=== PATIENT | female | born 1955 | race Caucasian/White ===

== ENCOUNTER 2022-05-30 14:39 | Outpatient (CLI) | payer MEDICARE, BC, SELFPAY ==
--- NOTE | 2022-05-30 14:30 | MR_ITS ---
[address] [address] Phone:?[phone] Fax:?[phone] Referring Physician Information: Lee Llanos M.D. [id number] [facility] [address] Phone:?[phone] Fax:?[phone] Patient:Lea Ashford D.O.B:?1955 Sex:?Female Phone:?[phone] [facility] MRN:?[id number] Exam Date:?05/30/2022 ? EXAM: MRI OF THE RIGHT SHOULDER CLINICAL INFORMATION: The patient is a 66-year-old with right shoulder pain. Evaluate for biceps injury. PRIOR SURGERY: None reported. COMPARISON STUDIES: There are no prior studies available for comparison. TECHNICAL INFORMATION: Using a 1.5T MR scanner and a localizing shoulder surface coil: 3.0 mm?coronal obliques: PD, T2, STIR 3.0 mm?sagittal obliques: PD, T2 3.0 mm?axials: PD, T2 FINDINGS: Articular/Extraarticular collections: Effusion: Moderate. Subacromial/subdeltoid: Mild to moderate fluid is seen within the subacromial/subdeltoid bursa, in keeping with changes of bursitis. Subcoracoid: No evidence for bursitis. Osseous structures: Proximal humerus: There is cortical irregularity and subcortical edema involving the greater and lesser tuberosity regions, in keeping with the rotator cuff pathology discussed below. No evidence for greater or lesser tuberosity fracture can be seen. No Hill-Sachs or reverse Hill-Sachs lesion is identified. Glenoid: No acute bony abnormality of the glenoid fossa or glenoid neck can be seen. Acromioclavicular joint: Moderate changes of acromioclavicular joint arthrosis are present and can be seen on coronal series 4 image 13 and on sagittal series 8 image 16. Coracoacromial arch: Acromion morphology: Type II. No evidence for os acromiale. Acromiohumeral space: Mildly narrowed. Coracohumeral space: Mildly narrowed. Rotator cuff and deltoid: Supraspinatus: The supraspinatus tendon is abnormal in appearance. There is high-grade partial-thickness intrasubstance and deep surface tearing of the supraspinatus tendon fibers seen on coronal series 6 image 15 and on sagittal series 8 image 11, measuring approximately 18 mm in mediolateral dimension and involving up to 90% of the tendon thickness. Additional superimposed focal areas of full-thickness fenestration of the anterior and distal tendon fibers can be seen on coronal series 6 image 12 and on sagittal series 8 image 7, each measuring approximately 5 mm in greatest dimension. No definite evidence for well-defined retraction is seen. Mild atrophic changes of the supraspinatus muscle belly are present. Infraspinatus: Mild to moderate infraspinatus tendinosis can be seen. There is no evidence for full or partial-thickness tearing. No atrophic changes of the infraspinatus muscle belly are identified. Teres minor: No evidence for tendinosis, tearing, or associated muscle belly atrophy. Subscapularis: Mild to moderate subscapularis tendinosis can be seen. There is no evidence for full or partial-thickness tearing. No atrophic changes of the subscapularis muscle belly are noted. Deltoid: No evidence for strain or tearing. Biceps tendon: Tendinosis and splitting of the long head of the biceps can be seen with mild medial subluxation of the tendon at the level of the biceps sulcus. There is no evidence for biceps rupture or nicol dislocation. Glenohumeral joint and labrum: Articular Cartilage: Chondromalacia and chondral thinning along the articular surfaces of the glenohumeral articulation can be seen. No definite osteoarthritic changes are present. Labrum: Degeneration, blunting, and irregularity of the glenoid labrum can be seen without definite areas of more well-defined tearing. No paralabral ganglion cyst formation is present. Capsular Soft Tissues: Thickening of the capsular structures of the glenohumeral articulation can be seen in the region of the axillary recess and rotator cuff interval. The findings are consistent with changes of adhesive capsulitis. CONCLUSION: 1. High-grade partial-thickness supraspinatus tearing with focal areas of superimposed full-thickness disruption of the anterior and distal tendon fibers. Please see the description above. 2. Mild to moderate infraspinatus and subscapularis tendinosis. 3. Tendinosis, splitting, and mild medial subluxation of the long head of the biceps. 4. Chondromalacia and chondral thinning along the articular surfaces of the glenohumeral articulation. 5. Moderate acromioclavicular joint arthrosis with mild narrowing of the acromiohumeral space. 6. Moderate glenohumeral joint effusion with mild to moderate subacromial/subdeltoid bursal fluid. 7. Nonspecific capsular thickening, in keeping with adhesive capsulitis. [facility] Electronically signed on 05/31/2022 8:16:00 AM by Iban Sue M.D.
== END 2022-05-30 14:40 | disposition home or self-care (01) ==
LOC: MRI 14:42
PROVIDERS: PCP Family Medicine; Visit Provider Orthopaedic Surgery Sports Medicine
DX: M25.511 Pain in right shoulder (principal); S46.211A Strain of muscle, fascia and tendon of other parts of biceps, right arm, initial encounter; M75.101 Unspecified rotator cuff tear or rupture of right shoulder, not specified as traumatic; M94.211 Chondromalacia, right shoulder; M25.411 Effusion, right shoulder; M75.01 Adhesive capsulitis of right shoulder
CPT/HCPCS: 73221

== ENCOUNTER 2023-01-11 07:11 | Day surgery (SDC) | payer MEDICARE, BC, SELFPAY ==
[2023-01-11] VITALS (15 sets, daily range): BP systolic 105–147; BP diastolic 48–81; PULSE 47–90; RESP 16–21; TEMP 36.1–36.6; O2SAT 90–98; BMI 38.1
[2023-01-11] MEDS: LACTATED RINGERS 1000 ML 1,000 ML 100 ML IV ×2 (08:00→10:40)
[2023-01-11] MEDS: SODIUM CHLORIDE 0.9 % (FLUSH) 10 ML SYRINGE IVF (08:07)
[2023-01-11] MEDS: MIDAZOLAM HCL 1 MG/ML inj IVP (09:00)
[2023-01-11] MEDS: fentaNYL 100 MCG/2 ML inj IVP (09:00)
--- NOTE | 2023-01-11 09:07 | SUR.PREOP ---
TIME?OUT:?0855, right shoulder PT/RN/MDA?VERIFICATION?OF?SURGICAL?SITE,?PROCEDURE,?AND?CONSENT OBTAINED?PRIOR?TO?INVASIVE?PROCEDURE.
--- NOTE | 2023-01-11 09:39 | P.NB_ITS ---
Nerve Block Nerve Block Time Seen by Provider: 09:02 Date Seen: 01/11/23 Type of block requested by surgeon for post-operative analgesia: supraclavicular Side: right Time out performed: Yes Verification of patient name: Yes Verification of date of : Yes Site marking: site marked Name of person performing procedure: Richard Continuous monitoring Was continuous monitoring of O2 sat, B/P, clinical research monitor, recorded every 15 minutes?: Yes Procedure Checklist: sterile prep, needles and gloves Ultrasound guided. Images saved: Yes Medications given in 5ml increments after negative aspiration: Ropivicaine %: 0.5 mL: 20 Needle gauge: 22 Decadron (mg): 10 Precedex (mcg): 25 Patient tolerated procedure well: Yes Block Charges Block Charge (with Pro Fee): Brachial Plexus Use of Ultrasound Machine for Block: Yes- US Guidance/pain block
--- NOTE | 2023-01-11 09:39 | W.ANESCHARGE ---
Anesthesia Charges Start Date/Time Anesthesia Start Date: 01/11/23 Anesthesia Start Time: 09:39 Stop Date/Time Anesthesia Stop Date: 01/11/23 Anesthesia Stop Time: 11:34
[2023-01-11] MEDS: CEFAZOLIN 2 GM in 0.9 % SODIUM CHLORIDE Mini-bag 100 ML IVPB (09:47)
[2023-01-11] MEDS: EPINEPHrine 1 MG in SODIUM CHLORIDE IRRIG SOLUTION 3,000 ML 9003 MG IRRIGATION ×3 (10:20→11:01)
--- NOTE | 2023-01-11 11:32 | P.ORPRC_ITS ---
Procedure Note Date of procedure: 01/11/23 Procedure: PREOPERATIVE DIAGNOSES: 1. Right shoulder rotator cuff tear -full thickness supraspinatus and significant upper border subscapularis with mild-moderate retraction 2. Right shoulder AC joint arthrosis, primary, moderate-severe 3. Right shoulder anterior and superior labral tearing 4. Right shoulder low-grade partial-thickness long head of biceps tendon tearing 5. 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 Right shoulder subacromial impingement syndrome. POSTOPERATIVE DIAGNOSES: 1. Right shoulder rotator cuff tear -full thickness supraspinatus and significant upper border subscapularis with mild-moderate retraction 2. Right shoulder AC joint arthrosis, primary, moderate-severe 3. Right shoulder anterior and superior labral tearing 4. Right shoulder low-grade partial-thickness long head of biceps tendon tea ring 5. 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 Right shoulder subacromial impingement syndrome. NAME OF OPERATION: 1. Right shoulder arthroscopic rotator cuff repair - full-thickness supraspinatus, small-medium tear roughly 10 mm in diameter as well as upper border subscapularis with mild-moderate retraction 2. Right shoulder arthroscopic distal clavicle excision 3. Right shoulder arthroscopic extensive glenohumeral debridement 4. Right shoulder arthroscopic bursectomy, subacromial decompression/partial acromioplasty. SURGEON: Lee Llanos MD DIRECTOR PATIENT FINANCIAL SERVICES: Demetri OVALLE. Of note, a skilled communications assistant was critical for this case to aide in patient positioning, suture manipulation, arm positioning, instrument positioning, and closure. ANESTHESIA: General plus preoperative supraclavicular block. EBL: 25 mL IMPLANTS: Arthrex 4.75 mm BioComposite SwiveLock suture anchor (x2); 5.5 mm BioComposite SwiveLock suture anchor (x1) COMPLICATIONS: None evident INDICATIONS: The patient is a pleasant, 59-year-old female who has experienced right shoulder pain that has been increasing in recent time. Physical exam and imaging were consistent with a rotator cuff tear. Given their findings, as well as the weakness and pain, and inadequate response to nonoperative management, recommendation was made for surgery. FINDINGS: Exam under anesthesia revealed stable shoulder with excellent range of motion. The diagnostic arthroscopy revealed grade 3 chondromalacia humeral head anteriorly. The Subscapularis tendon was torn and high-grade partial- thickness manner with mild-moderate retraction of the superior border. The long head of the biceps tendon was torn low-grade partial-thickness manner in the deep surface at the bicipital groove region. The superior rotator cuff tendon was found to be torn full thickness at the anterior margin measuring approximately 10 mm in greatest dimension with minimal retraction. The labrum was degeneratively frayed in the anterior and superior aspects. No loose bodies were identified within the pouch or subscapularis recess. PROCEDURE: Following a thorough discussion of risks, benefits, and alternatives, consent was obtained and the right shoulder was marked. The patient was brought to the operating room and placed supine on the operating table. Induction of anesthesia was completed after preoperative supraclavicular block was administered in preop holding. Appropriate time out was performed identifying proper patient, site, and procedure. 2 g IV Ancef was administered within 1 hour of incision preoperatively. The right upper extremity was prepped and draped in the appropriate sterile fashion using ChloraPrep prep. This was after the patient was positioned in the beach chair with their head in neutral alignment and all bony prominences well padded. The shoulder was insufflated with 20mL of normal saline via an 18g spinal needle from a posterior approach. An 11 blade skin incision allowed a blunt trochar to be inserted and diagnostic arthroscopy to be performed with the findings as noted above. An anterior portal was established with an outside in technique. This allowed the probe to be inserted and confirm the diagnostic arthroscopic findings. The shaver was then inserted and allowed debridement of the anterior and superior labrum it as well as the humeral chondral tissue of the loose chondral flaps and the deep surface of long head of biceps tendon. Following this, the upper border subscapularis was repaired after debriding the lesser tuberosity with the shaver and [place] cautery. Subscapularis was captured in horizontal mattress fashion with a fiber tape suture. The tails were brought to a single anchor in the lesser tuberosity with excellent reapproximation of the subscap tendon and good excursion/tension. Thereafter, the subacromial space was entered. Here, a complete bursectomy and partial acromioplasty/subacromial decompression was performed with a combination of radiofrequency ablator, the shaver, and a 5.5 mm bur. Additionally, distal clavicle excision was performed with the bur. 8 mm of distal clavicle was resected based on the with of our bur. Further inspection of the supraspinatus and infraspinatus rotator cuff was performed. This identified the tear as noted above. The margins of the tear were debrided, and the greater tuberosity was debrided with a combination of the [place] cautery, shaver, and bur on reverse setting. After gentle decortication, single FiberTape suture was passed in a horizontal mattress fashion with the scorpion needle. Additionally, the eyelet sutures were passed independently allowing 4 tails to be passed through the rotator cuff tissue. It was brought to a single anchor further laterally with excellent reapproximation and securing of the rotator cuff. Prior to anchor bottom hoop driver removal, the eyelet sutures were tugged on for each anchor and found that the anchor had excellent stability within the bone. The shoulder was placed through range of motion and found to be stable. The rotator cuff was re-probed and found to be stable. Instruments were removed. Excess fluid was drained, closure performed with 4-0 Monocryl and Steri-Strips. Dressings were applied. Sling was applied. The patient was awoken from anesthesia and transferred to the PACU in stable condition. A skilled communications assistant was critical for this case to aid in patient positioning, limb positioning, skill to manipulate arthroscopic instruments and camera, suture management, patient safety, and closure. PLAN: 1. Elbow, forearm, wrist and digit range of motion as tolerated. 2. Encouraged ice. 3. Percocet for pain as needed. 4. Sling at all times except for ROM and showering. 5. Follow up with PA visit in 1-2 weeks for wound check. Initiate physical therapy following that visit for passive range of motion. Initiate active assisted range of motion at 5-6 weeks depending on tear size. May do pendulums now.
--- NOTE | 2023-01-11 11:36 | W.ANESCHARGE ---
Anesthesia Charges Start Date/Time Anesthesia Start Date: 01/11/23 Anesthesia Start Time: 09:39 Stop Date/Time Anesthesia Stop Date: 01/11/23 Anesthesia Stop Time: 11:34
== END 2023-01-11 13:24 | disposition home or self-care (01) ==
PROVIDERS: PCP Family Medicine; Visit Provider Orthopaedic Surgery Sports Medicine
PROC: (CPT 29805; principal; 2023-01-11 09:30)
DX: M75.101 Unspecified rotator cuff tear or rupture of right shoulder, not specified as traumatic (principal); M19.011 Primary osteoarthritis, right shoulder; S43.431A Superior glenoid labrum lesion of right shoulder, initial encounter; S46.111A Strain of muscle, fascia and tendon of long head of biceps, right arm, initial encounter; M94.211 Chondromalacia, right shoulder; M75.41 Impingement syndrome of right shoulder; G89.18 Other acute postprocedural pain
CPT/HCPCS: 29827; 29826; 29823; 29824; 01630; 64415; 76942; C1713; J0171; J0330; J0690; J1100; J2250; J2704; J2795; J3010; J7120; L3670